=== PATIENT | male | born 1995 | race Caucasian/White ===

== ENCOUNTER 2020-03-07 16:32 | Emergency (ER) | payer OTHER ==
[~2020-03-07] VITALS: Ht 180.3 cm; Wt 68.0 kg
[2020-03-07] MEDS ORDERED: ONDANSETRON 4 MG ODT PO ONE (16:35)
[2020-03-07 16:37] VITALS: BP 130/78
--- NOTE | 2020-03-07 16:47 | NUR ---
BIBA FROM CONSTRUCTION SITE, POSSIBLE UNWTINESSED SEIZURE.HX SEIZURE. PT HAS NOT BEEN TAKING MEDICATIONS FOR 3 YEARS FOR SEIZURE.
[2020-03-07 18:07] VITALS: BP 133/87
--- NOTE | 2020-03-07 18:07 | NUR ---
Patient discharged with v/s stable. Written and verbal after care instructions given and explained. Patient alert, oriented and verbalized understanding of instructions. Ambulatory with steady gait. All questions addressed prior to discharge. ID band removed. Patient advised to follow up with PMD. Rx of zofran 8mg PO ODT PRN N/V given. Patient educated on indication of medication including possible reaction and side effects. Opportunity to ask questions provided and answered.
== END 2020-03-07 18:07 | disposition home or self-care (01) ==
LOC: MED 16:32 → EDBD 16:32 → MED 18:07
DX: R56.9 Unspecified convulsions (principal); R11.2 Nausea with vomiting, unspecified
CPT/HCPCS: 99283; Q0162